=== PATIENT | female | born 1990 | race Caucasian/White ===

== ENCOUNTER 2017-07-22 15:07 | Emergency (ER) | payer SELFPAY ==
[2017-07-22 15:10] VITALS: BP 105/62; PULSE 91; RESP 16; TEMP 98; O2SAT 99
--- NOTE | 2017-07-22 15:13 | ED PDOC ---
HPI: Psych/Substance Abuse Time Seen by Provider: 07/22/17 15:12 Chief Complaint (Nursing): Psychiatric Evaluation Chief Complaint (Provider): crisis eval History Per: Patient Additional Complaint(s): 26-year-old female presents for crisis evaluation. Patient has history of depression and has been feeling suicidal over the past few days. She states upon arrival to ER she denies any plan. Patient denies homicidal ideation. No associated alcohol or drug use. Patient states she takes fluoxetine daily for depression. Past Medical History Reviewed: Historical Data, Nursing Documentation, Vital Signs Vital Signs: Last Vital Signs Temp 98.0 F 07/22/17 15:08 Pulse 91 H 07/22/17 15:08 Resp 16 07/22/17 15:08 BP 105/62 07/22/17 15:08 Pulse Ox 99 07/22/17 15:08 - Medical History PMH: Depression - Surgical History Surgical History: No Surg Hx - Family History Family History: States: No Known Family Hx - Living Arrangements Living Arrangements: With Family - Social History Current smoker - smoking cessation education provided: No Alcohol: None Drugs: Denies - Allergies Allergies/Adverse Reactions: Allergies Allergy/AdvReac Type Severity Reaction Status Date / Time No Known Allergies Allergy Verified 07/22/17 15:08 Review of Systems ROS Statement: Except As Marked, All Systems Reviewed And Found Negative Psych: Positive for: Suicidal ideation (with no plan) Physical Exam - Reviewed Nursing Documentation Reviewed: Yes Vital Signs Reviewed: Yes - Physical Exam Appears: Positive for: Well, Non-toxic, No Acute Distress Skin: Negative for: Rash Eye Exam: Positive for: Normal appearance Cardiovascular/Chest: Positive for: Regular Rate, Rhythm Respiratory: Positive for: Normal Breath Sounds Neurologic/Psych: Positive for: Alert, Oriented - Laboratory Results Urine POC: Negative - ECG O2 Sat by Pulse Oximetry: 99 Pulse Ox Interpretation: Normal Medical Decision Making Medical Decision Makin26 year old female here for crisis eval Plan: 1:1 bedside observation Crisis eval test As per crisis counselor and psychiatrist weight control lecturer, Dr. Stock/Edward Cesar NP, patient does not meet criteria for admission and is stable for discharge. She has a therapist that she will follow up as outpatient. Disposition - Clinical Impression Clinical Impression: Depression - Patient ED Disposition Is Patient to be Admitted: No Counseled Patient/Family Regarding: Need For Followup - Disposition Referrals: [facility] [Outside] Disposition: Routine/Home Disposition Time: 17:20 Condition: STABLE Additional Instructions: Follow up as directed by crisis counselor Instructions: Depression, Adult (DC) Forms: [employer] (Nepalese)
== END 2017-07-22 17:33 | disposition home or self-care (01) ==
LOC: H.ER 15:07
DX: F32.9 Major depressive disorder, single episode, unspecified (principal); R45.851 Suicidal ideations; Z00.8 Encounter for other general examination; Z86.59 Personal history of other mental and behavioral disorders